=== PATIENT | female | born 1980 | race Caucasian/White ===

== ENCOUNTER 2019-07-11 07:27 | Day surgery (SDC) | payer MEDICAID ==
[~2019-07-11] VITALS: Ht 167.6 cm; Wt 73.0 kg
[2019-07-11] MEDS ORDERED: LACTATED RINGERS 1,000 ML IV SCH (08:40)
[2019-07-11 08:44] LABS: BASOPHILS % 0.4 % (0.0-2.0); EOSINOPHILS % 0.8 % (0.0-5.0); HEMATOCRIT. 36.3 % (36.0-48.0); HEMOGLOBIN. 12.5 g/dL (12.0-16.0); LYMPHOCYTES % 24.3 % (20.0-50.0); MEAN CORPUSCULAR HEMOGLOBIN 30.6 pg (28.0-32.0); MEAN PLATELET VOLUME 8.6 fl (7.4-10.4); MONOCYTES % 6.1 % (2.0-8.0); NEUTROPHILS % 68.4 % (40.0-76.0); PLATELET 228 x1000/uL (130-400); RED BLOOD CELL COUNT 4.08 mill/uL (4.2-5.4); RED CELL DISTRIBUTION WIDTH 12.6 % (11.6-14.6)
[2019-07-11 08:53] LABS: CLARITY URINE CLEAR (CLEAR); COLOR URINE YELLOW (YELLOW); KETONES URINE NEGATIVE (NEGATIVE); LEUKOCYTE ESTERASE URINE NEGATIVE (NEGATIVE); NITRITE URINE NEGATIVE (NEGATIVE); OCCULT BLOOD URINE NEGATIVE (NEGATIVE); PROTEIN URINE NEGATIVE (NEGATIVE); SPECIFIC GRAVITY URINE 1.021 (1.005-1.030); UROBILINOGEN URINE 0.2 E.U./dL (0.2-1.0)
[2019-07-11 08:54] LABS: INR 0.9; PARTIAL THROMBOPLASTIN TIME 26.1 sec (23.4-31.0); PROTHROMBIN TIME 10.2 sec (9.6-11.0)
[2019-07-11 08:59] LABS: UCG SCREEN NEGATIVE
[2019-07-11 09:00] LABS: CHLORIDE 110 mEq/L (98-107)
[2019-07-11] MEDS ORDERED: METHYLENE BLUE 50 MG/10 ML AMP IV ONE (11:13)
[2019-07-11] MEDS ORDERED: FERRIC SUBSULFATE SOLN 8GM TOP NR (11:30)
[2019-07-11] MEDS ORDERED: VASOPRESSIN 20 UNIT/ML 1ML ONE (11:42)
[2019-07-11] MEDS ORDERED: SKIN ADHESIVE 0.7 GM EA TOP ONE (11:42)
[2019-07-11] MEDS ORDERED: ONDANSETRON HCL 4MG/2ML INJ ONE (11:48)
[2019-07-11] MEDS ORDERED: NEOSTIGMINE METHYLSULFATE 1MG/ML 10 ML VIAL ONE (11:48)
[2019-07-11] MEDS ORDERED: CEFAZOLIN SODIUM 1000MG/VIAL ONE (11:48)
[2019-07-11] MEDS ORDERED: METOCLOPRAMIDE HCL 10MG/2ML VIAL ONE (11:48)
[2019-07-11] MEDS ORDERED: PROPOFOL 200MG/20ML VIAL IV ONE (11:48)
[2019-07-11] MEDS ORDERED: SUCCINYLCHOLINE CHLORIDE 200MG/10ML IV ONE (11:48)
[2019-07-11] MEDS ORDERED: SODIUM CHLORIDE 0.9% 10ML VIAL ONE (11:48)
[2019-07-11] MEDS ORDERED: LIDOCAINE HCL/PF 1% 10 MG/ML 5ML VIAL ONE (11:48)
[2019-07-11] MEDS ORDERED: FENTANYL CITRATE/PF 50MCG/ML 2ML VIAL ONE ×2 (11:48→12:01)
[2019-07-11] MEDS ORDERED: ROCURONIUM BROMIDE 10MG/ML VIAL 5ML IV ONE (11:48)
[2019-07-11] MEDS ORDERED: GLYCOPYRROLATE 0.2 MG/ML 2ML VIAL ONE (11:48)
[2019-07-11] MEDS ORDERED: MIDAZOLAM HCL 2 MG/2 ML VIAL ONE (11:48)
[2019-07-11] MEDS ORDERED: BUPIVACAINE HCL 0.5% (5MG/ML) 50ML ONE (12:00)
[2019-07-11] MEDS ORDERED: SODIUM CHLORIDE 0.9% 1,000 ML IV ONE (12:47)
[2019-07-11] MEDS ORDERED: MORPHINE SULFATE 2 MG/ML CPJ (NOT FOR IM USE) IV PRN (13:00)
[2019-07-11] MEDS ORDERED: MEPERIDINE HCL/PF 25MG/ML CPJ IV PRN ×2 (13:00)
[2019-07-11] MEDS ORDERED: HYDROMORPHONE HCL/PF 2MG/ML CPJ IV PRN (13:00)
[2019-07-11] MEDS ORDERED: ONDANSETRON HCL 4MG/2ML INJ IV PRN (13:00)
[2019-07-11] MEDS ORDERED: IBUPROFEN 800MG TABLET PO NR (14:00)
== END 2019-07-11 15:00 | disposition home or self-care (01) ==
LOC: OR 07:27
PROVIDERS: ATTEND Obstetrics & Gynecology
DX: Z30.2 Encounter for sterilization (principal); K29.70 Gastritis, unspecified, without bleeding; Z98.890 Other specified postprocedural states; Z64.1 Problems related to multiparity
CPT/HCPCS: 36415; 58670; 80053; 81003; 81025; 85025; 85610; 85730; J0330; J0690; J2250; J2405; J2704; J2710; J2765; J3010; J3490; Q9968